=== PATIENT | male | born 1985 | race Caucasian/White ===

== ENCOUNTER 2021-11-28 18:14 | Emergency (ER) | payer OTHER ==
[~2021-11-28] VITALS: Ht 182.8 cm; Wt 98.3 kg
[2021-11-28 18:42] LABS: BILIRUBIN,URINE NEGATIVE (NEGATIVE); CLARITY,URINE CLEAR; COLOR,URINE YELLOW; GLUCOSE, URINE (UA) NEGATIVE (NEGATIVE); KETONES,URINE NEGATIVE (NEGATIVE); LEUKOCYTE ESTERASE ,URINE NEGATIVE (NEGATIVE); NITRITE,URINE NEGATIVE (NEGATIVE); PROTEIN,URINE NEGATIVE (NEGATIVE)
[2021-11-28 18:58] LABS: BASOPHILS # (AUTO) 0.1 10^3/uL (0.0-0.1); BASOPHILS % (AUTO) 1 % (0-10); EOSINOPHILS # (AUTO) 0.1 10^3/uL (0.0-0.3); EOSINOPHILS % (AUTO) 1 % (0-10); HEMATOCRIT 43 % (40-54); LYMPHOCYTES # (AUTO) 2.6 10^3/uL (1.0-4.0); LYMPHOCYTES % (AUTO) 25 % (12-44); MEAN CORPUSCULAR HEMOGLOBIN 30 pg (25-34); MEAN CORPUSCULAR HGB CONC 35 g/dL (32-36); MEAN CORPUSCULAR VOLUME 86 fL (80-99); MEAN PLATELET VOLUME 10.1 fL (9.0-12.2); MONOCYTES % (AUTO) 9 % (0-12); NEUTROPHILS # (AUTO) 6.7 10^3/uL (1.8-7.8); NEUTROPHILS % (AUTO) 64 % (42-75); PLATELET COUNT 264 10^3/uL (130-400); WHITE BLOOD COUNT 10.4 10^3/uL (4.3-11.0)
[2021-11-28 18:58] LABS: RBC,URINE RARE /HPF; WBC,URINE RARE /HPF
[2021-11-28 18:59] LABS: BACTERIA,URINE NEGATIVE /HPF; SQUAMOUS EPITHELIAL CELL,UR RARE /HPF
[2021-11-28 19:15] LABS: INR 0.9 (0.8-1.4); PROTHROMBIN TIME PATIENT 12.7 SEC (12.2-14.7)
--- NOTE | 2021-11-28 19:19 | ED GI ---
General Chief Complaint: Abdominal/GI Problems Stated Complaint: ABD PAIN,BLOOD IN URINE Source of Information: Patient Exam Limitations: No Limitations History of Present Illness Date Seen by Provider: Nov 28, 2021 Time Seen by Provider: 18:13 Initial Comments 36yoM with PMH of kidney stones coming in due hematuria for 3 days described as dark red at times but clear yellow now. He is having abdominal pain radiating to his flanks. Had some n/v this AM. Feels different than prior stones. No fever but has chills. No meds today. Allergies and Home Medications Allergies Coded Allergies: No Known Drug Allergies (Unverified , 11/28/21) Patient Home Medication List Home Medication List Reviewed: Yes Ketorolac Tromethamine (Ketorolac Tromethamine) 10 Mg Tablet, 10 MG PO Q6H Prescribed by: BRIANNA ROGEL on 11/28/211940 Ondansetron (Ondansetron Odt) 4 Mg Tab.rapdis, 4 MG PO Q6H PRN for NAUSEA/VOMITING-1ST LINE Prescribed by: BRIANNA ROGEL on 11/28/211940 Oxycodone HCl (Oxycodone HCl) 5 Mg Tablet, 5 MG PO Q6H PRN for PAIN-SEVERE (8- 10) Prescribed by: BRIANNA ROGEL on 11/28/211940 Tamsulosin HCl (Flomax) 0.4 Mg Cap, 0.4 MG PO DAILY Prescribed by: BRIANNA ROGEL on 11/28/211940 Review of Systems Review of Systems Constitutional: chills EENTM: No Blurred Vision Respiratory: Denies Cough Cardiovascular: Denies Chest Pain Gastrointestinal: Abdominal Pain Genitourinary: Hematuria Musculoskeletal: no symptoms reported Skin: no symptoms reported Psychiatric/Neurological: No Symptoms Reported Endocrine: No Symptoms Reported Hematologic/Lymphatic: No Symptoms Reported All Other Systems Reviewed Negative Unless Noted: Yes Past Wwhzzij-Mbkcoj-Nhyghp Hx Patient Social History Tobacco Use?: Yes Tobacco type used: Cigarettes Smoking Status: Current Everyday Smoker Substance use?: Yes Substance type: Methamphetamine Additional substance use comme: Last used yesterday Alcohol Use?: No Pt feels they are or have been: No Past Medical History Surgeries: No Physical Exam Vital Signs Vital Signs - First Documented 11/28/21 19:13 Temp 36.2 Pulse 114 Resp 18 B/P (MAP) 148/98 (115) Pulse Ox 97 O2 Delivery Room Air Capillary Refill : Height/Weight/BMI Height: '" Weight: lbs. oz. kg; BMI Method: General Appearance: WD/WN, no apparent distress HEENT: PERRL/EOMI, normal ENT inspection, pharynx normal Neck: non-tender, full range of motion, supple, normal inspection Respiratory: chest non-tender, lungs clear, normal breath sounds, no respiratory distress, no accessory muscle use Cardiovascular: regular rate, rhythm, no edema, no murmur Gastrointestinal: normal bowel sounds, non tender, soft; No distended, No guarding, No rebound Extremities: normal range of motion, non-tender, normal inspection, no pedal edema, no calf tenderness, normal capillary refill Back: normal inspection, no vertebral tenderness, CVA tenderness (R), CVA tenderness (L) Neurologic/Psychiatric: no motor/sensory deficits, alert, normal mood/affect Skin: normal color, warm/dry Lymphatic: no adenopathy Progress/Results/Core Measures Results/Orders Lab Results Laboratory Tests Test 11/28/21 18:36 11/28/21 18:48 Range/Units Urine Color YELLOW Urine Clarity CLEAR Urine pH 6.0 5-9 Urine Specific [place] >=1.030 1.016-1.022 Urine Protein NEGATIVE NEGATIVE Urine Glucose (UA) NEGATIVE NEGATIVE Urine Ketones NEGATIVE NEGATIVE Urine Nitrite NEGATIVE NEGATIVE Urine Bilirubin NEGATIVE NEGATIVE Urine Urobilinogen 0.2 < = 1.0 MG/DL Urine Leukocyte Esterase NEGATIVE NEGATIVE Urine RBC (Auto) TRACE-I H NEGATIVE Urine RBC RARE /HPF Urine WBC RARE /HPF Urine Squamous Epithelial Cells RARE /HPF Urine Crystals NONE /LPF Urine Bacteria NEGATIVE /HPF Urine Casts NONE /LPF Urine Mucus LARGE H /LPF Urine Culture Indicated NO White Blood Count 10.4 4.3-11.0 10^3/uL Red Blood Count 4.97 4.30-5.52 10^6/uL Hemoglobin 15.0 13.3-17.7 g/dL Hematocrit 43 40-54 % Mean Corpuscular Volume 86 80-99 fL Mean Corpuscular Hemoglobin 30 25-34 pg Mean Corpuscular Hemoglobin Concent 35 32-36 g/dL Red Cell Distribution Width 12.9 10.0-14.5 % Platelet Count 264 130-400 10^3/uL Mean Platelet Volume 10.1 9.0-12.2 fL Immature Granulocyte % (Auto) 0 % Neutrophils (%) (Auto) 64 42-75 % Lymphocytes (%) (Auto) 25 12-44 % Monocytes (%) (Auto) 9 0-12 % Eosinophils (%) (Auto) 1 0-10 % Basophils (%) (Auto) 1 0-10 % Neutrophils # (Auto) 6.7 1.8-7.8 10^3/uL Lymphocytes # (Auto) 2.6 1.0-4.0 10^3/uL Monocytes # (Auto) 1.0 0.0-1.0 10^3/uL Eosinophils # (Auto) 0.1 0.0-0.3 10^3/uL Basophils # (Auto) 0.1 0.0-0.1 10^3/uL Immature Granulocyte # (Auto) 0.0 0.0-0.1 10^3/uL Prothrombin Time 12.7 12.2-14.7 SEC INR Comment 0.9 0.8-1.4 Activated Partial Thromboplast Time 29 24-35 SEC Sodium Level 141 135-145 MMOL/L Potassium Level 3.9 3.6-5.0 MMOL/L Chloride Level 102 98-107 MMOL/L Carbon Dioxide Level 25 21-32 MMOL/L Anion Gap 14 5-14 MMOL/L Blood Urea Nitrogen 11 7-18 MG/DL Creatinine 1.18 0.60-1.30 MG/DL Estimat Glomerular Filtration Rate 81 BUN/Creatinine Ratio 9 Glucose Level 116 H 70-105 MG/DL Calcium Level 9.3 8.5-10.1 MG/DL Corrected Calcium 8.5-10.1 MG/DL Total Bilirubin 0.9 0.1-1.0 MG/DL Aspartate Amino Transf (AST/SGOT) 28 5-34 U/L Alanine Aminotransferase (ALT/SGPT) 27 0-55 U/L Alkaline Phosphatase 88 40-136 U/L Total Protein 7.4 6.4-8.2 GM/DL Albumin 4.6 H 3.2-4.5 GM/DL Lipase 20 8-78 U/L My Orders Orders - BRIANNA ROGEL MD Ua Culture If Indicated (11/28/21 18:34) Cbc With Automated Diff (11/28/21 18:45) Comprehensive Metabolic Panel (11/28/21 18:45) Lipase (11/28/21 18:45) Protime With Inr (11/28/21 18:45) Partial Thromboplastin Time (11/28/21 18:45) Ed Iv/Invasive Line Start (11/28/21 19:10) Ct Abdomen/Pelvis Wo (11/28/21 19:19) Ketorolac Injection (Toradol Injection) (11/28/21 19:30) Ondansetron Injection (Zofran Injectio (11/28/21 19:30) Oxycodone Immediate Rel Tablet (Oxyir Ta (11/28/21 20:00) Medications Given in ED Current Medications Medications Dose Ordered Sig/Dotty Route Start Time Stop Time Status Last Admin Dose Admin Ketorolac Tromethamine 15 mg ONCE ONCE IVP 11/28/21 19:30 11/28/21 19:31 DC 11/28/21 19:38 15 MG Ondansetron HCl 4 mg ONCE ONCE IVP 11/28/21 19:30 11/28/21 19:31 DC 11/28/21 19:37 4 MG Oxycodone HCl 5 mg ONCE ONCE PO 11/28/21 20:00 11/28/21 20:01 DC 11/28/21 20:10 5 MG Vital Signs/I&O 11/28/21 11/28/21 19:13 20:06 Temp 36.2 Pulse 114 102 Resp 18 18 B/P (MAP) 148/98 (115) 133/74 Pulse Ox 97 99 O2 Delivery Room Air Room Air Progress Progress Note : Progress Note 36-year-old male with above history coming in due to hematuria and flank pain. ABCs were intact and vitals were stable on presentation. An IV was placed and he was given Toradol for pain control and Zofran for nausea. Urinalysis with some blood but no signs of infection. Basic labs otherwise unremarkable. CT abdomen pelvis without contrast ordered and interpreted by me showing it appears to be a small stone in the left ureter close to the bladder. The patient was given oral oxycodone followed by a prescription. He was then discharged back to senior living in stable condition with strict return precautions Diagnostic Imaging Diagonstic Imaging: CT Plain Films/CT/US/NM/MRI: abdomen Reviewed: Reviewed/Discussed Departure Impression Primary Impression: Ureterolithiasis Disposition: 21 DIS/XFER COURT/LAW [employer] Condition: Stable Departure-Patient Inst. Decision time for Depature: 19:55 Referrals: BRIGETTE RUANO (PCP/Family) Primary Care Physician Patient Instructions: Kidney Stones in Adults Add. Discharge Instructions: You do have a kidney stone that is likely going to pass soon as it is really close to passing. We sent pain medicine to your pharmacy and nausea medicine. Sometimes it can take 1 day of to a couple weeks to pass. If you continue to have issues, schedule an appointment with our urologist, Dr. Banda, to discuss procedures to have the stone removed. Take the ketorolac every 6 hours as needed for pain for the next 3 days. If you have pain on top of that you can take the oxycodone up to every 6 hours. When you run out of the ketorolac, you can take ibuprofen 600 mg every 6 hours as replacement for it. Scripts Tamsulosin HCl (Flomax) 0.4 Mg Cap 0.4 MG PO DAILY for 14 Days, #14 CAP Prov: BRIANNA ROGEL MD 11/28/21 Ondansetron (Ondansetron Odt) 4 Mg Tab.rapdis 4 MG PO Q6H PRN for NAUSEA/VOMITING-1ST LINE for 5 Days, #20 TAB Prov: BRIANNA ROGEL MD 11/28/21 Oxycodone HCl (Oxycodone HCl) 5 Mg Tablet 5 MG PO Q6H PRN for PAIN-SEVERE (8-10) for 3 Days, #12 TAB Prov: BRIANNA ROGEL MD 11/28/21 Ketorolac Tromethamine (Ketorolac Tromethamine) 10 Mg Tablet 10 MG PO Q6H for 3 Days, #12 TAB Prov: BRIANNA ROGEL MD 11/28/21 BRIANNA ROGEL MD Nov 28, 2021 19:19
[2021-11-28] MEDS ORDERED: ONDANSETRON 4 MG/2 ML (SDV) Z0FRAN IVP ONE (19:30)
[2021-11-28] MEDS ORDERED: KETOROLAC 30 MG/ML VIAL IVP ONE (19:30)
[2021-11-28 19:40] LABS: ALANINE AMINOTRANSFERASE 27 U/L (0-55); ALBUMIN 4.6 GM/DL (3.2-4.5); ALKALINE PHOSPHATASE 88 U/L (40-136); BILIRUBIN,TOTAL 0.9 MG/DL (0.1-1.0); BUN/CREATININE RATIO 9; CALCIUM 9.3 MG/DL (8.5-10.1); CARBON DIOXIDE 25 MMOL/L (21-32); CHLORIDE 102 MMOL/L (98-107); CREATININE SERUM 1.18 MG/DL (0.60-1.30); GFR ESTIMATED 81; GLUCOSE 116 MG/DL (70-105); LIPASE 20 U/L (8-78); POTASSIUM 3.9 MMOL/L (3.6-5.0); SODIUM 141 MMOL/L (135-145); TOTAL PROTEIN 7.4 GM/DL (6.4-8.2)
[2021-11-28] MEDS ORDERED: TMSL.4C PO (19:41)
[2021-11-28] MEDS ORDERED: OXYC5TAB PO (19:41)
[2021-11-28] MEDS ORDERED: KETO10TA PO (19:41)
[2021-11-28] MEDS ORDERED: ONDA4TAB11 PO (19:41)
--- NOTE | 2021-11-28 19:43 | Diagnostic Imaging Report ---
PROCEDURE: CT abdomen and pelvis without contrast. TECHNIQUE: Multiple contiguous axial images were obtained through the abdomen and pelvis without the use of intravenous contrast. Auto Exposure Controls were utilized during the CT exam to meet ALARA standards for radiation dose reduction. INDICATION: Hematuria. Abdominal pain. COMPARISON: None. FINDINGS: The heart is unremarkable. The lung bases are clear. There is hepatic steatosis. No focal hepatic lesions. The gallbladder is decompressed. The spleen, pancreas, adrenal glands, and kidneys have a normal appearance. There is no pathologically enlarged mesenteric or retroperitoneal adenopathy. The bowel loops are nondilated. The appendix is surgically absent. There is no free fluid or free air. No acute osseous abnormalities. Ureters and bladder are normal. Small right-sided fat-containing inguinal hernia. There is no free air, loculated collection, or adenopathy in the pelvis. IMPRESSION: 1. No obstructing calculi or hydronephrosis. No perinephric fat stranding. 2. Hepatic steatosis. No focal hepatic lesions. 3. Small right-sided fat-containing inguinal hernia. Dictated by: Dictated on workstation # [id number]
[2021-11-28 20:06] VITALS: BP 133/74
== END 2021-11-28 20:11 ==
LOC: EDUNIT# 18:14 → ER FS 18:15
DX: N20.1 Calculus of ureter (principal); F17.210 Nicotine dependence, cigarettes, uncomplicated
CPT/HCPCS: 36415; 74176; 80053; 81000; 83690; 85025; 85610; 85730